=== PATIENT | female | born 1975 | race African-American/Black ===

== ENCOUNTER 2018-12-19 18:05 | Emergency (ER) | payer SELFPAY ==
[~2018-12-19] VITALS: Ht 172.7 cm; Wt 90.7 kg
--- OUTSIDE RECORDS SUMMARY | 2018-12-19 18:09 | XMS REPORT | Clinical Summary ---
Author Author [facility] Organization [facility] Address Unknown Phone Unavailable Care Team Providers Care Redeye Gunner Name Role Phone PCP Unavailable Allergies Comments Active Allergy Reactions Severity Noted Date No Known Drug Allergies 10/05/2009 Medications End Date Status Medication Sig Dispensed Refills Start Date Active simvastatin (ZOCOR) 40 mg Take 1 Tab by 30 Tab 1 tabletIndications: Chest mouth at 1 pain, atypical bedtime. Active GLUCOMETER see admin 1 Kit 0 deviceIndications: instructions. 1 Diabetes mellitus type 2 Use as in obese, Medication directed. refill Active hydrOXYzine (ATARAX) 25 Take 1 Tab by 30 Tab 2 mg tabletIndications: mouth 2 times 1 Pruritus daily as needed for Itching. Active blood glucose Use as 1 Kit 0 meterIndications: directed. 3 Uncontrolled diabetes mellitus Active nystatin (MYCOSTATIN) Apply to 30 g 3 topical creamIndications: affected area 3 Dermatophytosis of foot 2 times daily. Active ammonium lactate Apply to 225 g 3 (LAC-HYDRIN) 12 % affected area 3 lotionIndications: 2 times Xerosis cutis daily. Active PRECISION XTRA TEST Test every 50 Each 6 STRIPS test other day. 4 stripsIndications: Medication refill Active lancets 28 Use as 1 Box 1 gaugeIndications: directed 4 Uncontrolled diabetes mellitus Active terbinafine (LAMISIL) 250 Take 1 tablet 30 tablet 0 mg tabletIndications: by mouth 4 Dermatophytosis of nail daily. Active SUMAtriptan (IMITREX) 25 Take 1 tablet 9 tablet 2 mg tabletIndications: by mouth at 4 Migraine onset of headache. Repeat after 2 hours if needed. Maximum 200mg/24 hours.. Active promethazine (PHENERGAN) Take 1 tablet 30 tablet 2 25 mg tabletIndications: by mouth at 4 Nausea, Medication refill bedtime nightly. Active ketoconazole (NIZORAL) 2 Apply to 120 mL 0 % shampooIndications: affected area 4 Tinea capitis daily as needed for Itching. Active zolpidem (AMBIEN) 10 mg Take 1 tablet 30 tablet 2 TabIndications: Insomnia, by mouth 4 unspecified nightly at bedtime as needed (sleep). Active metoprolol tartrate Take 1 tablet 180 tablet 3 (LOPRESSOR) 25 mg by mouth 2 4 tabletIndications: times daily. Medication refill Active NOVOLIN N 100 unit/mL Inject under 10 mL 6 injectionIndications: the skin 10 4 Diabetes mellitus type 2 units in the in obese, Medication morning and refill 10 units in the evening. Active sulindac (CLINORIL) 200 Take 1 tablet 50 tablet 0 mg tabletIndications: by mouth 2 4 Back pain times daily as needed for Pain. Active glyBURIDE-metFORMIN Take 2 60 tablet 1 (GLUCOVANCE) 5-500 mg per tablets by 8 tabletIndications: mouth 2 times Uncontrolled diabetes daily (with mellitus, Medication meals). refill 06/19/2018 Discontinued glyBURIDE-metFORMIN Take 2 360 tablet 3 (GLUCOVANCE) 5-500 mg per tablets by 5 tabletIndications: mouth 2 times Uncontrolled diabetes daily (with mellitus, Medication meals). refill 06/26/2018 metroNIDAZOLE (FLAGYL) Take 1 tablet 14 tablet 0 500 mg tabletIndications: by mouth 2 8 Bacterial vaginosis, times daily Urinary tract infection for 7 days. with hematuria, site unspecified 06/29/2018 cephALEXin (KEFLEX) 500 Take 1 30 capsule 0 mg capsuleIndications: capsule by 8 Bacterial vaginosis, mouth 3 times Urinary tract infection daily for 10 with hematuria, site days. unspecified Active Problems Problem Noted Date UTI (urinary tract infection) 06/19/2018 Unspecified dental caries 07/30/2014 Gingivitis 05/20/2014 Dental examination 03/11/2014 Pain, dental 03/11/2014 CHF (congestive heart failure) 09/15/2011 Noncompliance with treatment 12/29/2008 Diabetes mellitus (adult onset) 09/14/2008 Encounters Care Team Description Date Type Specialty Filemon Moreland MD Urinary tract infection with hematuria, site unspecified (Primary Dx); Bacterial vaginosis; Uncontrolled diabetes mellitus; Medication refill 06/19/2018 Emergency Emergency Medicine after 12/18/2017 Immunizations Name Dates Previously Given Next Due Influenza Vaccine 08/05/2010, 09/14/2008 PPV 23 Pneumococcal 09/14/2008 Polysaccaride Family History Medical History Relation Name Comments Asthma Brother Seizures Brother Sickle Cell Maternal Aunt Arthritis Maternal Grandmother Diabetes Maternal Grandmother Hypertension Maternal Grandmother Diabetes Mother Asthma Other self Diabetes Other self Psychiatry Paternal Aunt Stroke Paternal Aunt Pulmonary Paternal Grandfather Cancer Paternal breast Grandmother Diabetes Paternal Grandmother Heart Paternal Grandmother Psychiatry Paternal Uncle Seizures Sister Asthma Son Relation Name Status Comments Brother Alive Brother Alive Brother Alive Brother Brother Daughter Alive Daughter Alive Daughter Alive Daughter Alive Father Alive Maternal Aunt Maternal Grandfather Maternal Grandmother Alive Mother Alive Other Other Paternal Aunt Paternal Aunt Paternal Grandfather Alive Paternal Grandmother Paternal Uncle Sister Alive Sister Alive Sister Son Alive Son Alive Son Alive Son Social History Date Tobacco Use Types Packs/Day Years Used Never Smoker Smokeless Tobacco: Never Used Tobacco Cessation: Counseling Given: No Alcohol Use Drinks/Week oz/Week Comments Yes socially Sex Assigned at Date Recorded Not on file Industry Job Start Date Occupation Not on file Not on file Not on file Travel End Travel History Travel Start No recent travel history available. Last Filed Vital Signs Time Taken Vital Sign Reading 06/19/2018 6:57 PM CDT Blood Pressure 142/91 06/19/2018 6:57 PM CDT Pulse 78 06/19/2018 6:57 PM CDT Temperature 36.7 C (98.1 F) 06/19/2018 6:57 PM CDT Respiratory Rate 16 06/19/2018 6:57 PM CDT Oxygen Saturation 99% - Inhaled Oxygen - Concentration 06/19/2018 12:24 PM CDT Weight 93.2 kg (205 lb 6.4 oz) - Height - 02/19/2015 9:00 AM CDT Body Mass Index 31.23 Plan of Treatment Health Maintenance Due Date Last Done Comments DM Retinal Exam (Yearly) 10/15/2014 10/15/2013, 05/19/2013 DM HGBA1C (Yearly) 08/28/2015 08/28/2014, 01/15/2014, 10/16/2013, Additional history exists DM Foot Exam (Yearly) 09/04/2015 09/04/2014 Breast Cancer Scrn 09/18/2015 09/18/2014 (Yearly) Cervical Cancer Scrn (3 05/26/2016 05/26/2013, 08/25/2011 Yrs) IMM Influenza Seasonal 08/12/2018 Oct to January (>/=19 yrs) DM Microalbumin Urine 06/19/2019 06/19/2018, 03/25/2014, 01/15/2014, Scrn (Yearly) Additional history exists Procedures Comments Procedure Name Priority Date/Time Associated Diagnosis POCT URINE DIPSTICK - STAT 06/19/2018 4:48 PM CDT BMP POC Routine 06/19/2018 4:35 PM CDT URINE CULTURE Routine 06/19/2018 2:51 PM CDT UA CHEMISTRIES STAT 06/19/2018 2:51 PM CDT CBC/DIFF STAT 06/19/2018 2:51 PM CDT GLUCOSE POC Routine 06/19/2018 12:28 PM CDT after 12/18/2017 Results * POCT URINE DIPSTICK - (06/19/2018 4:48 PM CDT) Pathologist [facility] Pass Control Negative * BMP POC (06/19/2018 4:35 PM CDT) Pathologist [facility] CO2 POC 27 21 - 32 mmol/L [facility] 1 Chloride POC 99 98 - 107 mmol/L [facility] 1 Potassium POC 3.8 3.50 - 5.10 mmol/L [facility] 1 Sodium POC 138 136 - 145 mmol/L [facility] 1 Glucose POC 270 (H) 74 - 106 mg/dL [facility] 1 Urea Nitrogen 11 7 - 18 mg/dL [facility] POC [facility] 1 Creatinine POC 0.6 0.6 - 1.3 mg/dL [facility] 1 Calcium Ionized 1.21 1.15 - 1.29 mmol/L [facility] POC [facility] 1 Hemoglobin POC 11.2 (L) 12.0 - 16.0 g/dL [facility] 1 Hematocrit POC 33.0 (L) 37.0 - 47.0 % [facility] 1 GFR, Estimated >60 mL/min/1.73 m2 [facility] 1 GFR, Estim, >60 mL/min/1.73 m2 [facility] Afr-Am MA[facility]-STATION 1 Performing Organization Address [facility] Phone Number MISYS [facility] 1 * UA CHEMISTRIES (06/19/2018 2:51 PM CDT) Color Yellow [facility] 2 Clarity Hazy [facility] 2 Spec [place] >1.035 (H) 1.001 - 1.035 [facility] 2 pH 6.0 5 - 8 [facility] 2 Protein 2+ (A) NEG [facility] 2 Glucose 3+ (A) NEG [facility] 2 Ketone Negative NEG [facility] 2 Bilirubin Negative NEG [facility] 2 Nitrate Negative NEG [facility] 2 Urobilinogen <1.0 0.2 - 1.0 EU/dL [facility] 2 Leukocyte 1+ (A) NEG [facility] 2 Blood Negative NEG [facility] 2 RBC 8 (H) 0 - 4 /HPF [facility] 2 WBC 34 (H) 0 - 5 /HPF [facility] 2 Bacteria Few [facility] 2 Epithelial Cell 3 /HPF [facility] 2 Hyaline Cast 1 /LPF [facility] 2 Specimen Urine Performing Organization Address [facility]/[employer] Phone Number MISYS [facility] 2 * URINE CULTURE (06/19/2018 2:51 PM CDT) Spec Urine [facility] Description MICROBIOLOGY Order Comments None [facility] MICROBIOLOGY Culture 10,000-100,000 CFU/ml [facility] MICROBIOLOGY Streptococcus beta hemolytic, group B 10,000-100,000 CFU/ml [place] albicans Report Status Final 06/21/2018 [facility] MICROBIOLOGY Specimen Urine - URINE Performing Organization Address City/State/Zipcode Phone Number MISYS [facility] MICROBIOLOGY [facility] MICROBIOLOGY * CBC/DIFF (06/19/2018 2:51 PM CDT) WBC 5.3 4.5 - 11.0 K/uL [facility] 2 RBC 4.43 4.20 - 5.40 M/uL [facility] 2 Hemoglobin 9.7 (L) 12.0 - 16.0 g/dL [facility] 2 Hematocrit 34.5 (L) 37.0 - 47.0 % [facility] 2 MCV 78 (L) 82 - 92 fL [facility] 2 MCH 21.9 (L) 27.0 - 32.0 pg [facility] 2 MCHC 28.1 (L) 32.0 - 36.0 g/dL [facility] 2 RDW 42.9 36.4 - 46.3 fL [facility] 2 Platelet 402 (H) 150 - 400 K/uL [facility] 2 Mean Platelet 10.6 9.4 - 12.4 fL [facility] Volume [facility] 2 Percent NRBC 0.0 [facility] 2 Absolute NRBC 0.00 [facility] 2 Neutrophil 48.6 34.0 - 70.0 % [facility] 2 Lymphocyte 41.8 20.0 - 50.0 % [facility] 2 Monocyte 7.7 5.0 - 12.0 % [facility] 2 Eosinophil 1.3 0.7 - 5.0 % [facility] 2 Basophil 0.4 0.1 - 1.2 % [facility] 2 Pct Immat Gran 0.2 0.0 - 0.5 [facility] 2 Neutrophil, Abs 2.60 1.56 - 6.13 K/uL [facility] 2 Lymphocyte, Abs 2.23 1.18 - 3.74 K/uL [facility] 2 Monocyte, Abs 0.41 (H) 0.24 - 0.36 K/uL [facility] 2 Eosinophil, Abs 0.07 0.04 - 0.36 K/uL [facility] 2 Basophil, Abs 0.02 0.01 - 0.08 K/uL [facility] 2 Absol Immat 0.01 0.00 - 0.03 K/uL [facility] Gran [facility] 2 Specimen Blood Performing Organization Address City/State/Zipcode Phone Number NYDIA [facility] 2 * GLUCOSE POC (06/19/2018 12:28 PM CDT) Glucose POC 338 (H) 74 - 106 mg/dL [facility] 1 Performing Organization Address City/State/[facility] Phone Number [facility] 1 after 12/18/2017 Insurance Type Payer Benefit Subscriber ID Effective Phone Address Plan / Dates Group [facility] SEL[employer]-PAY [facility] xxxxxxxxx 2018-P [phone] [id number] [place] [address]
--- OUTSIDE RECORDS SUMMARY | 2018-12-19 18:09 | XMS REPORT | Clinical Summary ---
Author Author [facility] Organization [facility] Address Unknown Phone Unavailable Care Team Providers Care Milk Pasteurizer Name Role Phone Asked, No Pcp PCP Unavailable Allergies No Known Allergies Medications End Date Status Medication Sig Dispensed Refills Start Date 08/25/2018 Discontinued metFORMIN (GLUCOPHAGE) Take 500 mg 0 500 mg tablet by mouth 2 (two) times a day with meals. 09/01/2018 cephalexin (KEFLEX) 500 Take 1 28 capsule 0 MG capsule capsule (500 8 mg total) by mouth 4 (four) times a day for 7 days. 08/25/2018 fluconazole (DIFLUCAN) Take 1 tablet 1 tablet 0 150 MG tablet (150 mg 8 total) by mouth once for 1 dose. Take in 1 week after antibiotics if yeast infection still present. 09/24/2018 glyburide-metformin Take 1 tablet 30 tablet 0 (GLUCOVANCE) 5-500 mg per by mouth 8 tablet daily with breakfast for 30 days. Active Problems Not on file Encounters Care Team Description Date Type Specialty Bridger Huddleston MD Labial abscess (Primary Dx); Yeast infection; Toothache 08/25/2018 Emergency Emergency Medicine after 12/18/2017 Social History Date Tobacco Use Types Packs/Day Years Used Never Assessed Smokeless Tobacco: Never Used Alcohol Use Drinks/Week oz/Week Comments Yes Sex Assigned at Date Recorded Not on file Industry Job Start Date Occupation Not on file Not on file Not on file Travel End Travel History Travel Start No recent travel history available. Last Filed Vital Signs Time Taken Vital Sign Reading 08/25/2018 8:45 AM CDT Blood Pressure 158/78 08/25/2018 8:45 AM CDT Pulse 90 08/25/2018 5:21 AM CDT Temperature 36.7 C (98 F) 08/25/2018 6:45 AM CDT Respiratory Rate 20 08/25/2018 8:45 AM CDT Oxygen Saturation 100% - Inhaled Oxygen - Concentration 08/25/2018 5:19 AM CDT Weight 89.4 kg (197 lb) 08/25/2018 5:19 AM CDT Height 172.7 cm (5' 8") 08/25/2018 5:19 AM CDT Body Mass Index 29.95 Plan of Treatment Not on file Procedures Comments Procedure Name Priority Date/Time Associated Diagnosis HCG QUALITATIVE, URINE Routine 08/25/2018 SCREEN 5:56 AM CDT SMEAR REVIEW Routine 08/25/2018 5:37 AM CDT ESTIMATED GFR Routine 08/25/2018 5:37 AM CDT COMPREHENSIVE METABOLIC Routine 08/25/2018 PANEL 5:37 AM CDT HC COMPLETE BLD COUNT Routine 08/25/2018 W/AUTO DIFF 5:37 AM CDT URINALYSIS SCREEN AND Routine 08/25/2018 MICROSCOPY, WITH REFLEX 5:36 AM CDT TO CULTURE GRAM STAIN Routine 08/25/2018 5:36 AM CDT URINE CULTURE Routine 08/25/2018 5:36 AM CDT POC GLUCOSE Routine 08/25/2018 5:21 AM CDT after 12/18/2017 Results * hCG qualitative, urine screen (08/25/2018 5:56 AM CDT) hCG qualitative, urine Negative Negative [facility] DEPARTMENT OF Comment: PATHOLOGY AND The manufacturers stated GENOMIC MEDICINE sensitivity of HcG test for serum is >/=10 mIU/ml and urine is >/=20mIU/ml. Specimen Urine Performing Organization Address City/State/Zipcode Phone Number [facility] DEPARTMENT OF [address] [place] [address] PATHOLOGY AND GENOMIC MEDICINE * Smear review (08/25/2018 5:37 AM CDT) Platelet slide review Elena adequate [facility] DEPARTMENT OF PATHOLOGY AND GENOMIC MEDICINE Anisocytosis 1+ [facility] DEPARTMENT OF PATHOLOGY AND GENOMIC MEDICINE Polychromasia 1+ [facility] DEPARTMENT OF PATHOLOGY AND GENOMIC MEDICINE Ovalocytes 1+ [facility] DEPARTMENT OF PATHOLOGY AND GENOMIC MEDICINE Wild cells 1+ [facility] DEPARTMENT OF PATHOLOGY AND GENOMIC MEDICINE Enlarged platelets 1+ [facility] DEPARTMENT OF PATHOLOGY AND GENOMIC MEDICINE Giant platelets Occasional [facility] DEPARTMENT OF PATHOLOGY AND GENOMIC MEDICINE Elliptocytes Occasional [facility] DEPARTMENT OF PATHOLOGY AND GENOMIC MEDICINE Performing Organization Address City/State/Zipcode Phone Number [place] [address] [place] [address] PATHOLOGY AND GENOMIC MEDICINE * Estimated GFR (08/25/2018 5:37 AM CDT) Estimated GFR >=90 mL/min/1.[address] [facility] DEPARTMENT OF Comment: PATHOLOGY AND CatergoryUnitsInte GENOMIC MEDICINE rpretation G1 >=90 Normal or high G2 60-89Mildly decreased Q3y23-50 Mildly to moderately decreased D6y96-11 Moderately to severely decreased G4 15-29Severely decreased G5 <15Kidney failure The eGFR was calculated using the Chronic Kidney Disease Epidemiology Collaboration (CKD-EPI) equation. Interpretation is based on recommendations of the National Kidney Foundation-Kidney Disease Outcomes Quality Initiative (NKF-KDOQI) published in 2014. Specimen Plasma specimen Performing Organization Address City/State/Zipcode Phone Number [place] [address] [place] [address] PATHOLOGY AND GENOMIC MEDICINE * CBC with platelet and differential (08/25/2018 5:37 AM CDT) WBC 7.5 4.2 - 11.0 k/uL [facility] DEPARTMENT OF PATHOLOGY AND GENOMIC MEDICINE RBC 4.44 4.04 - 5.86 m/uL [facility] DEPARTMENT OF PATHOLOGY AND GENOMIC MEDICINE HGB 8.7 (L) 11.5 - 15.3 g/dL [facility] DEPARTMENT OF PATHOLOGY AND GENOMIC MEDICINE HCT 31.3 (L) 34.0 - 45.0 % [facility] DEPARTMENT OF PATHOLOGY AND GENOMIC MEDICINE MCV 70.5 (L) 80.0 - 98.[address] [facility] DEPARTMENT OF PATHOLOGY AND GENOMIC MEDICINE MCH 19.6 (L) 27.0 - 34.[address] [facility] DEPARTMENT OF PATHOLOGY AND GENOMIC MEDICINE MCHC 27.8 (L) 31.5 - 36.5 g/dL [facility] DEPARTMENT OF PATHOLOGY AND GENOMIC MEDICINE RDW - SD 40.4 37.0 - 51.[address] [facility] DEPARTMENT OF PATHOLOGY AND GENOMIC MEDICINE MPV 9.9 7.4 - 10.[address] [facility] DEPARTMENT OF PATHOLOGY AND GENOMIC MEDICINE Platelet count 470 (H) 150 - 400 k/uL [facility] DEPARTMENT OF PATHOLOGY AND GENOMIC MEDICINE Nucleated RBC 0.00 /[address] [facility] DEPARTMENT OF PATHOLOGY AND GENOMIC MEDICINE Neutrophils 64.5 36.0 - 66.0 % [facility] DEPARTMENT OF PATHOLOGY AND GENOMIC MEDICINE Lymphocytes 24.0 24.0 - 44.0 % [facility] DEPARTMENT OF PATHOLOGY AND GENOMIC MEDICINE Monocytes 9.3 (H) 0.0 - 6.0 % [facility] DEPARTMENT OF PATHOLOGY AND GENOMIC MEDICINE Eosinophils 1.5 0.0 - 6.0 % [facility] DEPARTMENT OF PATHOLOGY AND GENOMIC MEDICINE Basophils 0.4 0.0 - 1.2 % [facility] DEPARTMENT OF PATHOLOGY AND GENOMIC MEDICINE Immature granulocytes 0.3 0.0 - 1.0 % [facility] DEPARTMENT OF PATHOLOGY AND GENOMIC MEDICINE Specimen Blood Performing Organization Address City/State/Zipcode Phone Number [place] [address] [place] [address] PATHOLOGY AND GENOMIC MEDICINE * Comprehensive metabolic panel (08/25/2018 5:37 AM CDT) Sodium 141 135 - 150 mEq/L [facility] DEPARTMENT OF PATHOLOGY AND GENOMIC MEDICINE Potassium 4.3 3.5 - 5.0 mEq/L [facility] DEPARTMENT OF PATHOLOGY AND GENOMIC MEDICINE Chloride 103 98 - 112 mEq/L [facility] DEPARTMENT OF PATHOLOGY AND GENOMIC MEDICINE CO2 27 24 - 31 mmol/L [facility] DEPARTMENT OF PATHOLOGY AND GENOMIC MEDICINE Anion gap 11@ANIO 7 - 15 mEq/L [facility] DEPARTMENT OF PATHOLOGY AND GENOMIC MEDICINE BUN 10 7 - 18 mg/dL [facility] DEPARTMENT OF PATHOLOGY AND GENOMIC MEDICINE Creatinine 0.50 0.50 - 0.90 mg/dL [facility] DEPARTMENT OF PATHOLOGY AND GENOMIC MEDICINE Glucose 364 (H) 65 - 100 mg/dL [facility] DEPARTMENT OF PATHOLOGY AND GENOMIC MEDICINE Calcium 9.4 8.3 - 10.2 mg/dL [facility] DEPARTMENT OF PATHOLOGY AND GENOMIC MEDICINE Protein 7.5 6.3 - 8.3 g/dL [facility] DEPARTMENT OF PATHOLOGY AND GENOMIC MEDICINE Albumin 3.8 3.5 - 5.0 g/dL [facility] DEPARTMENT OF PATHOLOGY AND GENOMIC MEDICINE A/G ratio 1.0 0.7 - 3.[address] [facility]PARTMENT OF PATHOLOGY AND GENOMIC MEDICINE Alkaline phosphatase 65 0 - 104 U/L [facility] DEPARTMENT OF PATHOLOGY AND GENOMIC MEDICINE AST 13 10 - 35 U/L [facility] DEPARTMENT OF PATHOLOGY AND GENOMIC MEDICINE ALT 8 5 - 50 U/L [facility] DEPARTMENT OF PATHOLOGY AND GENOMIC MEDICINE Total bilirubin <0.3 0.2 - 1.2 mg/dL [facility] DEPARTMENT OF PATHOLOGY AND GENOMIC MEDICINE Specimen Plasma specimen Performing Organization Address City/[facility] Phone Number [place] [address] [place] [address] PATHOLOGY AND GENOMIC MEDICINE * Urinalysis screen and microscopy, with reflex to culture (08/25/2018 5:36 AM CDT) Specimen site Clean catch [facility] DEPARTMENT OF PATHOLOGY AND GENOMIC MEDICINE Color, UA Straw [facility] DEPARTMENT OF PATHOLOGY AND GENOMIC MEDICINE Appearance, UA Cloudy [facility] DEPARTMENT OF PATHOLOGY AND GENOMIC MEDICINE Specific gravity, UA 1.037 (H) 1.001 - 1.[address] [facility] DEPARTMENT OF PATHOLOGY AND GENOMIC MEDICINE pH, UA 6.0 5.0 - 8.[address] [facility] DEPARTMENT OF PATHOLOGY AND GENOMIC MEDICINE Protein, UA 2+ (A) Negative [facility] DEPARTMENT OF PATHOLOGY AND GENOMIC MEDICINE Glucose, UA 3+ (A) Negative [facility] DEPARTMENT OF PATHOLOGY AND GENOMIC MEDICINE Ketones, UA Negative Negative [facility] DEPARTMENT OF PATHOLOGY AND GENOMIC MEDICINE Bilirubin, UA Negative Negative [facility] DEPARTMENT OF PATHOLOGY AND GENOMIC MEDICINE Blood, UA Moderate (A) Negative [facility] DEPARTMENT OF PATHOLOGY AND GENOMIC MEDICINE Nitrite, UA Negative Negative [facility] DEPARTMENT OF PATHOLOGY AND GENOMIC MEDICINE Urobilinogen, UA Negative <2.[address] [facility] DEPARTMENT OF PATHOLOGY AND GENOMIC MEDICINE Leukocyte esterase, UA Small (A) Negative [facility] DEPARTMENT OF PATHOLOGY AND GENOMIC MEDICINE Epithelial cells, UA Many /HPF [facility] DEPARTMENT OF PATHOLOGY AND GENOMIC MEDICINE WBC, UA 38 (H) 0 - 5 /HPF [facility] DEPARTMENT OF PATHOLOGY AND GENOMIC MEDICINE RBC, UA 25 (H) 0 - 5 /HPF [facility] DEPARTMENT OF PATHOLOGY AND GENOMIC MEDICINE Bacteria, UA Few None seen [facility] DEPARTMENT OF PATHOLOGY AND GENOMIC MEDICINE Yeast, UA None seen [facility] DEPARTMENT OF PATHOLOGY AND GENOMIC MEDICINE Yeast with pseudohyphae, None seen [facility] DEPARTMENT OF PATHOLOGY AND GENOMIC MEDICINE Specimen Urine Performing Organization Address City/[facility]/Zipcode Phone Number [place] [address] [place] [address] PATHOLOGY AND GENOMIC MEDICINE * Gram stain (08/25/2018 5:36 AM CDT) Gram stain result Few Gram positive rods [facility] DEPARTMENT OF Few Gram negative rods PATHOLOGY AND Rare WBC's GENOMIC MEDICINE Comment: Specimen Information Specimen Source: Urine Specimen Site: Clean catch Specimen Urine Performing Organization Address City/State/Zipcode Phone Number [facility] DEPARTMENT OF [address] [place] [address] PATHOLOGY AND GENOMIC MEDICINE * Urine culture (08/25/2018 5:36 AM CDT) Urine culture isolate Staphylococcus aureus [facility] DEPARTMENT OF >10-5 cfu/ml PATHOLOGY AND This organism is Methicillin GENOMIC MEDICINE Resistant. (A) Comment: Specimen Information Specimen Source: Urine Specimen Site: Clean catch Urine culture isolate Gram positive val [facility] DEPARTMENT OF 10-3 cfu/ml PATHOLOGY AND (A) GENOMIC MEDICINE Specimen Urine Antibiotic Method Susceptibility Organism Ampicillin JANETTE mcg/mL: Resistant Staphylococcus aureus Clindamycin JANETTE <=0.5 mcg/mL: Susceptible Staphylococcus aureus Cefazolin JANETTE mcg/mL: Resistant Staphylococcus aureus Erythromycin JANETTE >4 mcg/mL: Resistant Staphylococcus aureus Nitrofurantoin JANETTE <=16 mcg/mL: Susceptible Staphylococcus aureus Linezolid JANETTE 2 mcg/mL: Susceptible Staphylococcus aureus Oxacillin JANETTE >2 mcg/mL: Resistant Staphylococcus aureus Penicillin G JANETTE >1 mcg/mL: Resistant Staphylococcus aureus Rifampin JANETTE <=0.5 mcg/mL: Susceptible Staphylococcus aureus Trimethoprim/Sulfamethoxazole JANETTE <=0.5/9.5 mcg/mL: Susceptible Staphylococcus aureus Tetracycline JANETTE <=0.5 mcg/mL: Susceptible Staphylococcus aureus Vancomycin JANETTE 1 mcg/mL: Susceptible Staphylococcus aureus Performing Organization Address City/[facility] Phone Number [facility] DEPARTMENT OF [address] [place] [address] PATHOLOGY AND GENOMIC MEDICINE * POC glucose (08/25/2018 5:21 AM CDT) POC glucose 340 (H) 65 - 100 mg/dL [facility] DEPARTMENT OF Comment: PATHOLOGY AND Meter ID: [id number] GENOMIC MEDICINE Channel Manager: Analia Gonzales Performing Organization Address City/State/Zipcode Phone Number [facility] DEPARTMENT OF [address] [place] [address] PATHOLOGY AND GENOMIC MEDICINE after 12/18/2017 Insurance Payer Benefit Subscriber ID Type Phone Address Plan / Group AETNA AETNA PPO xxxxxxxxxx PPO OPEN CHOICE
--- OUTSIDE RECORDS SUMMARY | 2018-12-19 18:09 | XMS REPORT | Clinical Summary ---
Author Author [facility] Address Unknown Phone Unavailable Care Team Providers Care Product Marketer Name Role Phone PCP Unavailable Allergies No Known Allergies Medications End Date Status Medication Sig Dispensed Refills Start Date Active liraglutide 0.6 mg/0.1 mL Inject 0 (18 mg/3 mL) PnIj subcutaneousl y. Active glyBURIDE-metFORMIN Take 1 tablet 0 (GLUCOVANCE) 5-500 mg per by mouth 2 tablet (two) times daily with breakfast and dinner. Active ondansetron (ZOFRAN-ODT) Take 1 tablet 10 tablet 0 4 MG disintegrating (4 mg total) 8 tablet by mouth every 8 (eight) hours as needed for up to 10 doses. Active traMADol (ULTRAM) 50 mg Take 1 tablet 10 tablet 0 tablet (50 mg total) 8 by mouth every 6 (six) hours as needed for up to 10 doses. Max Daily Amount: 200 mg 10/29/2018 doxycycline (VIBRAMYCIN) Take 1 20 capsule 0 100 MG capsule capsule (100 8 mg total) by mouth 2 (two) times daily for 10 days. Active Problems Not on file Encounters Care Team Description Date Type Specialty Bryan Yeboah MD Suppurative hidradenitis (Primary Dx); Febrile illness, acute; Hyperglycemia 10/19/2018 Emergency Emergency Medicine 10/19/2018 Travel after 12/18/2017 Family History Medical History Relation Name Comments defects Maternal Grandfather Hyperlipidemia Maternal Grandmother Diabetes Mother Relation Name Status Comments Maternal Grandfather Maternal Grandmother Mother Social History Date Tobacco Use Types Packs/Day Years Used Never Smoker Smokeless Tobacco: Never Used Alcohol Use Drinks/Week oz/Week Comments Yes social drinking Alcohol Habits Answer Date Recorded How often do you have a drink containing alcohol? Never 10/19/2018 How many drinks containing alcohol do you have on Not asked a typical day when you are drinking? How often do you have six or more drinks on one Not asked occasion? Sex Assigned at Date Recorded Not on file Industry Job Start Date Occupation Not on file Not on file Not on file Travel End Travel History Travel Start No recent travel history available. Last Filed Vital Signs Time Taken Vital Sign Reading 10/19/2018 6:40 PM LIGHT RAIL TRANSIT OPERATOR Blood Pressure 187/99 10/19/2018 6:40 PM LIGHT RAIL TRANSIT OPERATOR Pulse 85 10/19/2018 4:21 PM LIGHT RAIL TRANSIT OPERATOR Temperature 36.8 C (98.2 F) 10/19/2018 6:40 PM LIGHT RAIL TRANSIT OPERATOR Respiratory Rate 18 10/19/2018 6:40 PM LIGHT RAIL TRANSIT OPERATOR Oxygen Saturation 100% - Inhaled Oxygen - Concentration 10/19/2018 4:21 PM LIGHT RAIL TRANSIT OPERATOR Weight 93 kg (205 lb) - Height - - Body Mass Index - Plan of Treatment Not on file Procedures Comments Procedure Name Priority Date/Time Associated Diagnosis CBC W/PLT COUNT & AUTO STAT 10/19/2018 DIFFERENTIAL 5:15 PM LIGHT RAIL TRANSIT OPERATOR BASIC METABOLIC PANEL (7) STAT 10/19/2018 5:15 PM LIGHT RAIL TRANSIT OPERATOR CBC W/PLT COUNT & AUTO STAT 10/19/2018 DIFFERENTIAL 5:15 PM LIGHT RAIL TRANSIT OPERATOR RAPID INFLUENZA A&B STAT 10/19/2018 SCREEN 5:15 PM LIGHT RAIL TRANSIT OPERATOR after 12/18/2017 Results * CBC with platelet count + automated diff (10/19/2018 5:15 PM LIGHT RAIL TRANSIT OPERATOR) WBC 7.8 3.5 - 10.5 K/L [facility] RBC 4.05 3.93 - 5.22 M/L [facility] Hemoglobin 7.3 (L) 11.2 - 15.7 GM/DL [facility] Hematocrit 27.8 (L) 34.1 - 44.9 % [facility] MCV 68.6 (L) 79.4 - 94.8 fL [facility] MCH 18.0 (L) 25.6 - 32.2 pg [facility] MCHC 26.3 (L) 32.2 - 35.5 GM/DL [facility] RDW 18.3 (H) 11.7 - 14.4 % [facility] Platelets 483 (H) 150 - 450 K/CU MM [facility] MPV 9.2 (L) 9.4 - 12.3 fL [facility] nRBC 0 0 - 0 /100 WBC [facility] % Neutros 60 % [facility] % Lymphs 29 % [facility] % Monos 9 % [facility] % Eos 1 % [facility] % Baso 0 % [facility] # Neutros 4.71 1.56 - 6.13 K/L [facility] # Lymphs 2.26 1.18 - 3.74 K/L [facility] # Monos 0.74 (H) 0.24 - 0.36 K/L [facility] # Eos 0.08 0.04 - 0.36 K/L [facility] # Baso 0.03 0.01 - 0.08 K/L [facility] Immature 0 0 - 1 % [facility] Granulocytes-Relative [facility] Specimen Blood - Arm, Right Performing Organization Address City/[facility]/Zipcode Phone Number [facility] [address] [place] [address] [facility] * Rapid Influenza A&B Screen (10/19/2018 5:15 PM LIGHT RAIL TRANSIT OPERATOR) Rapid Influenza A Antigen NEGATIVE LABORATORY FINDING Negative, Inconclusive [facility] Rapid influenza B Antigen NEGATIVE LABORATORY FINDING Negative, Inconclusive [facility] Specimen Nasal - Nasal Mucosa Performing Organization Address City/[facility]/Zipcode Phone Number [facility] [address] [phone] [facility] * Basic Metabolic Panel (10/19/2018 5:15 PM LIGHT RAIL TRANSIT OPERATOR) Sodium 138 136 - 145 meq/L [facility] Potassium 4.1 3.5 - 5.1 meq/L [facility] Chloride 106 98 - 107 meq/L [facility] CO2 26 22 - 29 meq/L [facility] BUN 8 7 - 21 mg/dL [facility] Creatinine 0.67 0.57 - 1.25 mg/dL [facility] Glucose 189 (H) 70 - 105 mg/dL [facility] Calcium 9.2 8.4 - 10.2 mg/dL [facility] EGFR Comment: INSUFFICIENT CLINICAL mL/min/1.73 sq m [facility] DATA TO CALCULATE ESTIMATED [facility] GFR. Specimen Blood - Arm, Right Performing Organization Address City/State/Zipcode Phone Number [address] [address] [facility] after 12/18/2017 Insurance Payer Benefit Subscriber ID Type Phone Address Plan / Group AETNA - MGD CARE AETNA xxxxxxxxxx MERITAIN CHOICE POS
--- OUTSIDE RECORDS SUMMARY | 2018-12-19 18:10 | XMS REPORT ---
Author Author [facility] Address Unknown Phone Unavailable Care Team Providers Care Design Analyst Name Role Phone DRE RHODES Unavailable Unavailable Problems This patient has no known problems. Allergies, Adverse Reactions, Alerts This patient has no known allergies or adverse reactions. Medications This patient has no known medications. Encounters Start Date/Time End Date/Time Encounter Type Admission Type Attending [facility] Care Facility Care Department Encounter ID 2018-06-19 14:29:42 2018-06-19 14:29:42 [facility] MED [id number] Results Test Description Test Time Test Comments Text Results Atomic Results Result Comments RAPID INFLUENZA A&B SCREEN 2018-10-19 17:52:00 RAPID INFLUENZA A AG (BEAKER) (test ilqb=8101) Negative Negative, Inconclusive RAPID INFLUENZA B AG (BEAKER) (test utem=1431) Negative Negative, Inconclusive BASIC METABOLIC [id number] 17:38:00* Test Item Value Reference Range Comments SODIUM (BEAKER) (test yqlz=874) 138 meq/L 136-145 POTASSIUM (BEAKER) (test uokk=332) 4.1 meq/L 3.5-5.1 CHLORIDE (BEAKER) (test rweo=020) 106 meq/L 98-107 CO2 (BEAKER) (test vawr=342) 26 meq/L 22-29 BLOOD UREA NITROGEN (BEAKER) (test isfl=093) 8 mg/dL 7-21 CREATININE (BEAKER) (test oxlh=851) 0.67 mg/dL 0.57-1.25 GLUCOSE RANDOM (BEAKER) (test jaek=919) 189 mg/dL 70-105 CALCIUM (BEAKER) (test fsqq=293) 9.2 mg/dL 8.4-10.2 EGFR (BEAKER) (test khya=6531) mL/min/1.73 sq m INSUFFICIENT CLINICAL DATA TO CALCULATE ESTIMATED GFR. CBC W/PLT COUNT & AUTO [id number] 17:37:00* Test Item Value Reference Range Comments WHITE BLOOD CELL COUNT (BEAKER) (test jonb=884) 7.8 K/ L 3.5-10.5 RED BLOOD CELL COUNT (BEAKER) (test qiey=230) 4.05 M/ L 3.93-5.22 HEMOGLOBIN (BEAKER) (test qmcw=275) 7.3 GM/DL 11.2-15.7 HEMATOCRIT (BEAKER) (test onaf=250) 27.8 % 34.1-44.9 MEAN CORPUSCULAR VOLUME (BEAKER) (test fsay=770) 68.6 fL 79.4-94.8 MEAN CORPUSCULAR HEMOGLOBIN (BEAKER) (test pmus=999) 18.0 pg 25.6-32.2 MEAN CORPUSCULAR HEMOGLOBIN CONC (BEAKER) (test vmnu=373) 26.3 GM/DL 32.2-35.5 RED CELL DISTRIBUTION WIDTH (BEAKER) (test ixwb=185) 18.3 % 11.7-14.4 PLATELET COUNT (BEAKER) (test njxl=623) 483 K/CU MM 150-450 MEAN PLATELET VOLUME (BEAKER) (test mgwp=839) 9.2 fL 9.4-12.3 NUCLEATED RED BLOOD CELLS (BEAKER) (test nubw=850) 0 /100 WBC 0-0 NEUTROPHILS RELATIVE PERCENT (BEAKER) (test lavh=585) 60 % LYMPHOCYTES RELATIVE PERCENT (BEAKER) (test qxxr=618) 29 % MONOCYTES RELATIVE PERCENT (BEAKER) (test oopz=023) 9 % EOSINOPHILS RELATIVE PERCENT (BEAKER) (test tqwd=414) 1 % BASOPHILS RELATIVE PERCENT (BEAKER) (test aalq=112) 0 % NEUTROPHILS ABSOLUTE COUNT (BEAKER) (test shdq=304) 4.71 K/ L 1.56-6.13 LYMPHOCYTES ABSOLUTE COUNT (BEAKER) (test cfof=993) 2.26 K/ L 1.18-3.74 MONOCYTES ABSOLUTE COUNT (BEAKER) (test msgq=217) 0.74 K/ L 0.24-0.36 EOSINOPHILS ABSOLUTE COUNT (BEAKER) (test pmpm=316) 0.08 K/ L 0.04-0.36 BASOPHILS ABSOLUTE COUNT (BEAKER) (test nynx=627) 0.03 K/ L 0.01-0.08 IMMATURE GRANULOCYTES-RELATIVE PERCENT (BEAKER) (test stne=7348) 0 % 0-1
--- OUTSIDE RECORDS SUMMARY | 2018-12-19 18:10 | XMS REPORT ---
Author Author Admin, [place] Organization [facility] Address [address] [place] [address] Phone Allergies, Adverse Reactions, Alerts Allergy Name Reaction Description Start Date Severity Status Provider Allergies Unknown Conditions or Problems Problem Name Problem Code Onset Date Status Entry Date Provider Comment Standard Description Annotate Problems Unknown Medication List Medication Instructions Start Date Stop Date Generic Name NDC Status Provider Patient Instruction Drug Treatment Unknown - unknown
[2018-12-19] MEDS ORDERED: NITROGLYCERIN 2% OINT 1 GM PKT TOP STA (18:37)
[2018-12-19] MEDS ORDERED: ASPIRIN 81 MG CHEW TAB PO ONE (18:45)
[2018-12-19 19:11] LABS: BASOPHILS % 0.4 % (0.0-1.0); EOSINOPHILS # (AUTO) 0.1 (0.0-0.4); EOSINOPHILS % 1.5 % (0.0-6.0); HEMATOCRIT 31.8 % (34.2-44.1); HEMOGLOBIN 9.6 g/dL (12.0-16.0); LYMPHOCYTES # (AUTO) 2.4 (1.0-3.2); LYMPHOCYTES % 44.1 % (18.0-39.1); MEAN CORPUSCULAR HEMOGLOBIN 23.5 pg (28-32); MEAN CORPUSCULAR HGB CONC 30.2 g/dL (31-35); MEAN CORPUSCULAR VOLUME 77.9 fL (81-99); MONOCYTES # (AUTO) 0.4 (0.2-0.8); NEUTROPHILS # (AUTO) 2.5 (2.1-6.9); NEUTROPHILS % 45.8 % (38.7-80.0); PLATELET COUNT 316 x10e3/uL (140-360); RED BLOOD COUNT 4.08 x10e6/uL (3.6-5.1)
[2018-12-19] MEDS ORDERED: ACETAMINOPHEN 325 MG TAB PO ONE (19:15)
[2018-12-19] MEDS ORDERED: FAMOTIDINE 20 MG/2 ML VIAL IV ONE (19:15)
[2018-12-19] MEDS ORDERED: ONDANSETRON HCL INJ 2MG/ML 2ML 2 MG/ML VIAL IV PRN (19:15)
[2018-12-19 19:16] LABS: BILIRUBIN,URINE NEGATIVE (NEGATIVE); CLARITY,URINE HAZY (CLEAR); COLOR,URINE YELLOW (YELLOW); KETONES,URINE NEGATIVE (NEGATIVE); LEUKOCYTE ESTERASE ,URINE NEGATIVE (NEGATIVE); NITRITE,URINE NEGATIVE (NEGATIVE); PROTEIN,URINE DIPSTICK 2+ (NEGATIVE); URINE UROBILINOGEN 0.2 mg/dL (0.2 - 1)
[2018-12-19 19:20] LABS: INR 0.88; PARTIAL THROMBOPLASTIN TIME 26.5 seconds (23.8-35.5); PROTHROMBIN TIME 12.8 seconds (11.9-14.5)
[2018-12-19 19:30] LABS: ALANINE AMINOTRANSFERASE 10 IU/L (0-55); ALBUMIN 3.6 g/dL (3.5-5.0); ALBUMIN/GLOBULIN RATIO 1.1 (0.8-2.0); ALKALINE PHOSPHATASE 52 IU/L (40-150); ANION GAP 13.6 mmol/L (8-16); BLOOD UREA NITROGEN 8 mg/dL (7-26); BUN/CREATININE RATIO 10 (6-25); CARBON DIOXIDE 25 mmol/L (22-29); CHLORIDE 104 mmol/L (98-107); CREATINE KINASE 65 IU/L (29-168); CREATININE, SERUM 0.77 mg/dL (0.57-1.11); EST GLOMERULAR FILTRATION RATE > 60 ML/MIN (60-); GLUCOSE 216 mg/dL (74-118); POTASSIUM 3.6 mmol/L (3.5-5.1); SODIUM 139 mmol/L (136-145)
[2018-12-19 19:32] LABS: BACTERIA,URINE MANY /HPF; EPITHELIAL CELLS,URINE MODERATE /LPF; MUCUS,URINE MANY (RARE); RBC,URINE 0-5 /HPF (0-5)
--- NOTE | 2018-12-19 19:56 | Diagnostic Imaging Report ---
EXAMINATION: CHEST SINGLE (PORTABLE) INDICATION: Chest pain ^CHEST PAIN ^[id number] ^1929 ^Y COMPARISON: None FINDINGS: TUBES and LINES: None. LUNGS: Lungs are well inflated. Lungs are clear. There is no evidence of pneumonia or pulmonary edema. PLEURA: No pleural effusion or pneumothorax. HEART AND MEDIASTINUM: The cardiomediastinal silhouette is unremarkable. BONES AND SOFT TISSUES: No acute osseous lesion. Soft tissues are unremarkable. UPPER ABDOMEN: No free air under the diaphragm. IMPRESSION: No acute thoracic abnormality. Signed by: Dr. Jose J Sinclair M.D. on 12/19/2018 7:53 PM
[2018-12-19] MEDS ORDERED: LISINOPRIL 10 MG TAB PO ONE (20:30)
[2018-12-19] MEDS ORDERED: CLONIDINE HCL 0.1 MG TAB PO ONE (20:30)
[2018-12-19 21:29] VITALS: BP 135/78
--- NOTE | 2018-12-19 21:40 | NUR ---
LT AC 20G PIV DC'D AT THIS TIME, CATH INTACT, SITE WITHOUT COMPLICATIONS. DISCHARGE INSTRUCTIONS GIVEN WITH RX. PATIENT EDUCATED ABOUT SIDE EFFECTS OF MEDS, VERBALIZED UNDERSTANDING.
== END 2018-12-19 21:47 | disposition home or self-care (01) ==
LOC: ER 18:05
DX: R07.89 Other chest pain (principal); I10 Essential (primary) hypertension; E11.9 Type 2 diabetes mellitus without complications
CPT/HCPCS: 36415; 71045; 80053; 81001; 82550; 82553; 83880; 84484; 85025; 85610; 85730; 93005; 96374; 96375; 99284; J2405

== ENCOUNTER 2019-04-14 23:31 | Emergency (ER) | payer OTHER ==
[~2019-04-14] VITALS: Ht 172.7 cm; Wt 90.7 kg
--- OUTSIDE RECORDS SUMMARY | 2019-04-14 23:35 | XMS REPORT | Clinical Summary ---
Author Author [facility] Organization [facility] Address Unknown Phone Unavailable Care Team Providers Care Coater Operator Name Role Phone Asked, No Pcp PCP [...] infection; Toothache 08/25/2018 Emergency Emergency Medicine after 04/13/2018 Social History Date Tobacco Use Types Packs/Day [...] GLUCOSE Routine 08/25/2018 5:21 AM CDT after 04/13/2018 Results * hCG qualitative, urine screen (08/25/2018 5:56 AM CDT) hCG Negative Negative [facility] qualitative, Comment: OF PATHOLOGY urine The manufacturers stated AND GENOMIC sensitivity of HcG test for MEDICINE serum is >/=10 mIU/ml and urine is >/=20mIU/ml. Specimen Urine Performing Organization Address City/State/Zipcode Phone Number [facility] OF [address] [place] [address] PATHOLOGY AND GENOMIC MEDICINE * Smear review (08/25/2018 5:37 AM CDT) Platelet slide Elena adequate [facility] review OF PATHOLOGY AND GENOMIC MEDICINE Anisocytosis 1+ [facility] OF PATHOLOGY AND GENOMIC MEDICINE Polychromasia 1+ [facility] OF PATHOLOGY AND GENOMIC MEDICINE Ovalocytes 1+ [facility] OF PATHOLOGY AND GENOMIC MEDICINE Wild cells 1+ [facility] OF PATHOLOGY AND GENOMIC MEDICINE Enlarged 1+ [facility] platelets OF PATHOLOGY AND GENOMIC MEDICINE Giant platelets Occasional [facility] OF PATHOLOGY AND GENOMIC MEDICINE Elliptocytes Occasional [facility] OF PATHOLOGY AND GENOMIC MEDICINE Specimen Performing Organization Address City/State/Zipcode Phone Number [facility] [address] [place] [address] PATHOLOGY AND GENOMIC [facility] * Estimated GFR (08/25/2018 5:37 AM CDT) [facility] Estimated GFR >=90 mL/min/1.73 m2 [facility] Comment: OF PATHOLOGY CatergoryUnitsInte AND GENOMIC rpretation MEDICINE G1 >=90 Normal or high G2 60-89Mildly decreased [id number] Mildly to moderately decreased R1d27-15 Moderately to severely decreased G4 15-29Severely decreased G5 <15Kidney failure The eGFR was calculated using the Chronic Kidney Disease Epidemiology Collaboration (CKD-EPI) equation. Interpretation is based on recommendations of the National Kidney Foundation-Kidney Disease Outcomes Quality Initiative (NKF-KDOQI) published in 2014. Specimen Plasma specimen Performing Organization Address City/State/Zipcode Phone Number [facility] [address] [place] [address] PATHOLOGY AND GENOMIC [facility] * CBC with platelet and differential (08/25/2018 5:37 AM CDT) [facility] WBC 7.5 4.2 - 11.0 k/uL [facility] OF PATHOLOGY AND GENOMIC MEDICINE RBC 4.44 4.04 - 5.86 m/uL [facility] OF PATHOLOGY AND GENOMIC MEDICINE HGB 8.7 (L) 11.5 - 15.3 g/dL [facility] OF PATHOLOGY AND GENOMIC MEDICINE HCT 31.3 (L) 34.0 - 45.0 % [facility] OF PATHOLOGY AND GENOMIC MEDICINE MCV 70.5 (L) 80.0 - 98.0 fL [facility] OF PATHOLOGY AND GENOMIC MEDICINE MCH 19.6 (L) 27.0 - 34.0 pg [facility] OF PATHOLOGY AND GENOMIC MEDICINE MCHC 27.8 (L) 31.5 - 36.5 g/dL [facility] OF PATHOLOGY AND GENOMIC MEDICINE RDW - SD 40.4 37.0 - 51.0 fL [facility] OF PATHOLOGY AND GENOMIC MEDICINE MPV 9.9 7.4 - 10.4 fL [facility] OF PATHOLOGY AND GENOMIC MEDICINE Platelet count 470 (H) 150 - 400 k/uL [facility] OF PATHOLOGY AND GENOMIC MEDICINE Nucleated RBC 0.00 /100 WBC [facility] OF PATHOLOGY AND GENOMIC MEDICINE Neutrophils 64.5 36.0 - 66.0 % [facility] OF PATHOLOGY AND GENOMIC MEDICINE Lymphocytes 24.0 24.0 - 44.0 % [facility] OF PATHOLOGY AND GENOMIC MEDICINE Monocytes 9.3 (H) 0.0 - 6.0 % [facility] OF PATHOLOGY AND GENOMIC MEDICINE Eosinophils 1.5 0.0 - 6.0 % [facility] OF PATHOLOGY AND GENOMIC MEDICINE Basophils 0.4 0.0 - 1.2 % [facility] OF PATHOLOGY AND GENOMIC MEDICINE Immature 0.3 0.0 - 1.0 % [facility] granulocytes OF PATHOLOGY AND GENOMIC MEDICINE Specimen Blood Performing Organization Address City/State/Zipcode Phone Number [place] [address] [place] [address] PATHOLOGY AND GENOMIC MEDICINE * Comprehensive metabolic panel (08/25/2018 5:37 AM CDT) Sodium 141 135 - 150 mEq/L [facility] OF PATHOLOGY AND GENOMIC MEDICINE Potassium 4.3 3.5 - 5.0 mEq/L [facility] OF PATHOLOGY AND GENOMIC MEDICINE Chloride 103 98 - 112 mEq/L [facility] OF PATHOLOGY AND GENOMIC MEDICINE CO2 27 24 - 31 mmol/L [facility] OF PATHOLOGY AND GENOMIC MEDICINE Anion gap 11@ANIO 7 - 15 mEq/L [facility] OF PATHOLOGY AND GENOMIC MEDICINE BUN 10 7 - 18 mg/dL [facility] OF PATHOLOGY AND GENOMIC MEDICINE Creatinine 0.50 0.50 - 0.90 mg/dL [facility] OF PATHOLOGY AND GENOMIC MEDICINE Glucose 364 (H) 65 - 100 mg/dL [facility] OF PATHOLOGY AND GENOMIC MEDICINE Calcium 9.4 8.3 - 10.2 mg/dL [facility] OF PATHOLOGY AND GENOMIC MEDICINE Protein 7.5 6.3 - 8.3 g/dL [facility] OF PATHOLOGY AND GENOMIC MEDICINE Albumin 3.8 3.5 - 5.0 g/dL [facility] OF PATHOLOGY AND GENOMIC MEDICINE A/G ratio 1.0 0.7 - 3.8 [facility] OF PATHOLOGY AND GENOMIC MEDICINE Alkaline 65 0 - 104 U/L [facility] phosphatase OF PATHOLOGY AND GENOMIC MEDICINE AST 13 10 - 35 U/L [facility] OF PATHOLOGY AND GENOMIC MEDICINE ALT 8 5 - 50 U/L [facility] OF PATHOLOGY AND GENOMIC MEDICINE Total bilirubin <0.3 0.2 - 1.2 mg/dL [facility] OF PATHOLOGY AND GENOMIC MEDICINE Specimen Plasma specimen Performing Organization Address City/[facility] Phone Number [place] [address] [place] [address] PATHOLOGY AND GENOMIC MEDICINE * Urinalysis screen and microscopy, with reflex to culture (08/25/2018 5:36 AM CDT) Specimen site Clean catch [facility] OF PATHOLOGY AND GENOMIC MEDICINE Color, UA Straw [facility] OF PATHOLOGY AND GENOMIC MEDICINE Appearance, UA Cloudy [facility] OF PATHOLOGY AND GENOMIC MEDICINE Specific 1.037 (H) 1.001 - 1.035 [facility] gravity, OF PATHOLOGY AND GENOMIC MEDICINE pH, UA 6.0 5.0 - 8.5 [facility] OF PATHOLOGY AND GENOMIC MEDICINE Protein, UA 2+ (A) Negative [facility] OF PATHOLOGY AND GENOMIC MEDICINE Glucose, UA 3+ (A) Negative [facility] OF PATHOLOGY AND GENOMIC MEDICINE Ketones, UA Negative Negative [facility] OF PATHOLOGY AND GENOMIC MEDICINE Bilirubin, UA Negative Negative [facility] OF PATHOLOGY AND GENOMIC MEDICINE Blood, UA Moderate (A) Negative [facility] OF PATHOLOGY AND GENOMIC MEDICINE Nitrite, UA Negative Negative [facility] OF PATHOLOGY AND GENOMIC MEDICINE Urobilinogen, Negative <2.0 [facility] UA OF PATHOLOGY AND GENOMIC MEDICINE Leukocyte Small (A) Negative [facility] esterase, UA OF PATHOLOGY AND GENOMIC MEDICINE Epithelial Many /HPF [facility] cells, UA OF PATHOLOGY AND GENOMIC MEDICINE WBC, UA 38 (H) 0 - 5 /HPF [facility] OF PATHOLOGY AND GENOMIC MEDICINE RBC, UA 25 (H) 0 - 5 /HPF [facility] OF PATHOLOGY AND GENOMIC MEDICINE Bacteria, UA Few None seen [facility] OF PATHOLOGY AND GENOMIC MEDICINE Yeast, UA None seen [facility] OF PATHOLOGY AND GENOMIC MEDICINE Yeast with None seen [facility] pseudohyphae, OF PATHOLOGY UA AND GENOMIC MEDICINE Specimen Urine Performing Organization Address City/[facility]/Zipcode Phone Number [place] [address] [place] [address] PATHOLOGY AND GENOMIC MEDICINE * Gram stain (08/25/2018 5:36 AM CDT) Gram stain Few Gram positive rods [facility] DE[facility] result Few Gram negative rods OF PATHOLOGY Rare WBC's AND GENOMIC Comment: MEDICINE Specimen Information Specimen Source: Urine Specimen Site: Clean catch Specimen Urine Performing Organization Address City/State/Zipcode Phone Number [facility] DEPARTMENT OF [address] [place] [phone] PATHOLOGY AND GENOMIC MEDICINE * Urine culture (08/25/2018 5:36 AM CDT) Urine culture Staphylococcus aureus [facility] DEPARTMENT isolate >10-5 cfu/ml OF PATHOLOGY This organism is Methicillin AND GENOMIC Resistant. MEDICINE (A) Comment: Specimen Information Specimen Source: Urine Specimen Site: Clean catch Urine culture Gram positive val [facility] DEPARTMENT isolate 10-3 cfu/ml OF PATHOLOGY (A) AND GENOMIC MEDICINE Specimen Urine Antibiotic Method Susceptibility [...] mcg/mL: Susceptible Staphylococcus aureus Performing Organization Address City/State/Zipcode Phone Number [facility] DEPARTMENT OF [address] [place] [address] PATHOLOGY AND GENOMIC MEDICINE * POC glucose (08/25/2018 5:21 AM CDT) POC glucose 340 (H) 65 - 100 mg/dL [facility] Comment: OF PATHOLOGY Meter ID: [id number] AND GENOMIC Mesh Cutter: Analia Gonzales MEDICINE Specimen Performing Organization Address City/State/Zipcode Phone Number [facility] OF [address] [place] [address] PATHOLOGY AND GENOMIC MEDICINE after 04/13/2018 Insurance Type Payer Benefit Subscriber ID Effective Phone Address Plan / Dates Group PPO AETNA AETNA PPO xxxxxxxxxx [id number] OPEN resent CHOICE
--- OUTSIDE RECORDS SUMMARY | 2019-04-14 23:35 | XMS REPORT | Clinical Summary ---
Author Author [facility] Address Unknown Phone Unavailable Care Team Providers Care Net Wpf Developer Name Role Phone PCP Unavailable Allergies No [...] 10/19/2018 Emergency Emergency Medicine 10/19/2018 Travel after 04/13/2018 Family History Medical History Relation Name Comments [...] Taken Vital Sign Reading 10/19/2018 6:40 PM CHIEF INVESTIGATOR Blood Pressure 187/99 10/19/2018 6:40 PM CHIEF INVESTIGATOR Pulse 85 10/19/2018 4:21 PM CHIEF INVESTIGATOR Temperature 36.8 C (98.2 F) 10/19/2018 6:40 PM CHIEF INVESTIGATOR Respiratory Rate 18 10/19/2018 6:40 PM CHIEF INVESTIGATOR Oxygen Saturation 100% - Inhaled Oxygen - Concentration 10/19/2018 4:21 PM CHIEF INVESTIGATOR Weight 93 kg (205 lb) - Height - - Body Mass Index - Plan of Treatment Not on file Procedures Comments Procedure Name Priority Date/Time Associated Diagnosis CBC W/PLT COUNT & AUTO STAT 10/19/2018 DIFFERENTIAL 5:15 PM CHIEF INVESTIGATOR BASIC METABOLIC PANEL (7) STAT 10/19/2018 5:15 PM CHIEF INVESTIGATOR CBC W/PLT COUNT & AUTO STAT 10/19/2018 DIFFERENTIAL 5:15 PM CHIEF INVESTIGATOR RAPID INFLUENZA A&B STAT 10/19/2018 SCREEN 5:15 PM CHIEF INVESTIGATOR after 04/13/2018 Results * CBC with platelet count + automated diff (10/19/2018 5:15 PM CHIEF INVESTIGATOR) WBC 7.8 3.5 - 10.5 K/L [facility] RBC 4.05 3.93 - 5.22 M/L [facility] Hemoglobin 7.3 (L) 11.2 - 15.7 GM/DL [facility] Hematocrit 27.8 (L) 34.1 - 44.9 % [facility] MCV 68.6 (L) 79.4 - 94.8 fL [facility] MCH 18.0 (L) 25.6 - 32.2 pg [facility] MCHC 26.3 (L) 32.2 - 35.5 GM/DL [facility] RDW 18.3 (H) 11.7 - 14.4 % [facility] Platelets 483 (H) 150 - 450 K/CU MM [facility] MPV 9.2 (L) 9.4 - 12.3 fL [facility] nRBC 0 0 - 0 /100 WBC [facility] % Neutros 60 % [facility] % Lymphs 29 % [facility] % Monos 9 % [facility] % Eos 1 % [facility] % Baso 0 % [facility] # Neutros 4.71 1.56 - 6.13 K/L [facility] # Lymphs 2.26 1.18 - 3.74 K/L [facility] # Monos 0.74 (H) 0.24 - 0.36 K/L [facility] # Eos 0.08 0.04 - 0.36 K/L [facility] # Baso 0.03 0.01 - 0.08 K/L [facility] Immature 0 0 - 1 % [facility] Granulocytes-[facility] Specimen Blood Performing Organization Address City/[facility]/Zipcode Phone Number [facility] [address] [place] [address] [facility] * Rapid Influenza A&B Screen (10/19/2018 5:15 PM CHIEF INVESTIGATOR) Rapid Influenza A Antigen NEGATIVE LABORATORY FINDING Negative, Inconclusive [facility] Rapid influenza B Antigen NEGATIVE LABORATORY FINDING Negative, Inconclusive [facility] Specimen Nasal Performing Organization Address City/[facility]/Zipcode Phone Number [facility] [address] [place], [place] [phone] [facility] * Basic Metabolic Panel (10/19/2018 5:15 PM CHIEF INVESTIGATOR) Sodium 138 136 - 145 meq/L [facility] Potassium 4.1 3.5 - 5.1 meq/L [facility] Chloride 106 98 - 107 meq/L [facility] CO2 26 22 - 29 meq/L [facility] BUN 8 7 - 21 mg/dL [facility] Creatinine 0.67 0.57 - 1.25 mg/dL [facility] Glucose 189 (H) 70 - 105 mg/dL [facility] Calcium 9.2 8.4 - 10.2 mg/dL [facility] EGFR Comment: INSUFFICIENT CLINICAL mL/min/1.73 sq m [facility] DATA TO CALCULATE ESTIMATED [facility] GFR. Specimen Blood Performing Organization Address City/State/Zipcode Phone Number [facility] [address] [place] [address] [facility] after 04/13/2018 Insurance Payer Benefit Subscriber ID Type Phone Address Plan / Group AETNA - [employer] CARE AETNA xxxxxxxxxx [employer] CHOICE [employer]
[2019-04-15] MEDS ORDERED: ASPIRIN 81 MG CHEW TAB PO ONE
--- NOTE | 2019-04-15 00:30 | Diagnostic Imaging Report ---
EXAMINATION: Head CT without contrast. HISTORY:Headache and syncope. COMPARISON:None. TECHNIQUE: Multidetector axial images were obtained from the foramen magnum to the vertex without contrast. The images were reconstructed using brain and bone algorithms. Thin section brain images were reformatted into coronal and sagittal planes. Dose modulation, iterative reconstruction, and/or weight based adjustment of the mA/kV was utilized to reduce the radiation dose to as low as reasonably achievable. Intravenous contrast: None IMAGE QUALITY: Acceptable. FINDINGS: Skull/scalp: No lytic or blastic. lesions. No surgical changes. Parenchyma: No abnormal density. No acute hemorrhage, mass or acute major vascular territorial infarct. Arteries: No density suggestive of thrombosis. Dural sinuses: No abnormal density suggestive of thrombosis. Ventricles: No hydrocephalus or displacement. Extra-axial spaces: No abnormal density. Brain volume: Mild generalized cerebral volume loss. Craniocervical junction: No mass, Chiari malformation, or basilar invagination. Sella: No mass. Paranasal/mastoid sinuses: Imaged portions unremarkable. IMPRESSION: No acute intracranial abnormality. Mild generalized cerebral volume loss, advanced for patient's given age. Signed by: Dr. Kusum Olsen M.D. on 04/15/2019 12:27 AM
--- NOTE | 2019-04-15 00:52 | Diagnostic Imaging Report ---
EXAMINATION: CHEST SINGLE (PORTABLE) INDICATION: ^REPORTED SSYNCOPE ^[id number] ^0015 ^Y COMPARISON: 12/19/2018 FINDINGS: AP view TUBES and LINES: None. LUNGS: Lungs are well inflated. Lungs are clear. There is no evidence of pneumonia or pulmonary edema. PLEURA: No pleural effusion or pneumothorax. HEART AND MEDIASTINUM: The cardiomediastinal silhouette is unremarkable. BONES AND SOFT TISSUES: No acute osseous lesion. Soft tissues are unremarkable. UPPER ABDOMEN: No free air under the diaphragm. IMPRESSION: No acute thoracic abnormality. Signed by: Dr. Colten Trujillo MD on 04/15/2019 12:49 AM
[2019-04-15] MEDS ORDERED: ACETAMINOPHEN 325 MG TAB PO ONE (01:30)
[2019-04-15 01:34] LABS: BILIRUBIN,URINE NEGATIVE (NEGATIVE); CLARITY,URINE CLOUDY (CLEAR); COLOR,URINE RED (YELLOW); KETONES,URINE NEGATIVE (NEGATIVE); LEUKOCYTE ESTERASE ,URINE NEGATIVE (NEGATIVE); NITRITE,URINE NEGATIVE (NEGATIVE); PROTEIN,URINE DIPSTICK 1+ (NEGATIVE); URINE UROBILINOGEN 0.2 mg/dL (0.2 - 1)
[2019-04-15 01:36] LABS: AMPHETAMINES SCREEN,URINE NEGATIVE (NEGATIVE); BACTERIA,URINE FEW /HPF; BENZODIAZEPINES SCREEN,URINE NEGATIVE (NEGATIVE); EPITHELIAL CELLS,URINE RARE /LPF; PHENCYCLIDINE SCREEN,URINE NEGATIVE (NEGATIVE); PREGNANCY TEST, URINE NEGATIVE (NEGATIVE); RBC,URINE >50 /HPF (0-5)
[2019-04-15 01:37] LABS: BASOPHILS % 0.9 % (0.0-1.0); EOSINOPHILS # (AUTO) 0.1 (0.0-0.4); EOSINOPHILS % 1.3 % (0.0-6.0); HEMATOCRIT 30.1 % (34.2-44.1); HEMOGLOBIN 8.5 g/dL (12.0-16.0); LYMPHOCYTES # (AUTO) 1.7 (1.0-3.2); LYMPHOCYTES % 38.4 % (18.0-39.1); MEAN CORPUSCULAR HEMOGLOBIN 20.3 pg (28-32); MEAN CORPUSCULAR HGB CONC 28.2 g/dL (31-35); MEAN CORPUSCULAR VOLUME 71.8 fL (81-99); MONOCYTES # (AUTO) 0.5 (0.2-0.8); MONOCYTES % 10.2 % (4.4-11.3); NEUTROPHILS # (AUTO) 2.2 (2.1-6.9); PLATELET COUNT 353 x10e3/uL (140-360); RED BLOOD COUNT 4.19 x10e6/uL (3.6-5.1); RED CELL DISTRIBUTION WIDTH 18.8 % (11.7-14.4)
[2019-04-15 01:47] LABS: ALANINE AMINOTRANSFERASE 10 IU/L (0-55); ALBUMIN 3.6 g/dL (3.5-5.0); ALKALINE PHOSPHATASE 53 IU/L (40-150); BLOOD UREA NITROGEN 16 mg/dL (7-26); BUN/CREATININE RATIO 18 (6-25); CALCIUM 9.5 mg/dL (8.4-10.2); CARBON DIOXIDE 25 mmol/L (22-29); CHLORIDE 99 mmol/L (98-107); CREATINE KINASE 52 IU/L (29-168); EST GLOMERULAR FILTRATION RATE > 60 ML/MIN (60-); GLUCOSE 399 mg/dL (74-118); SODIUM 134 mmol/L (136-145)
[2019-04-15] MEDS ORDERED: ONDANSETRON HCL INJ 2MG/ML 2ML 2 MG/ML VIAL IV STA (01:52)
[2019-04-15] MEDS ORDERED: INSULIN REGULAR, HUMAN 100 UNIT/1 ML 3ML VIAL SQ ONE (02:30)
[2019-04-15 04:32] VITALS: BP 122/89
== END 2019-04-15 05:13 | disposition home or self-care (01) ==
LOC: ER 23:31
DX: R51 Headache (principal); D50.0 Iron deficiency anemia secondary to blood loss (chronic); E11.65 Type 2 diabetes mellitus with hyperglycemia; I11.0 Hypertensive heart disease with heart failure; I50.9 Heart failure, unspecified; Z91.041 Radiographic dye allergy status; Z83.3 Family history of diabetes mellitus; Z82.49 Family history of ischemic heart disease and other diseases of the circulatory system
CPT/HCPCS: 36415; 70450; 71045; 80053; 80307; 81001; 81025; 82550; 82553; 82948; 84484; 85025; 93005; 96374; 99284; J2405